=== PATIENT | male | born 1985 | race Caucasian/White ===

== ENCOUNTER 2017-05-14 14:31 | Emergency (ER) | payer SELFPAY ==
[~2017-05-14] VITALS: Ht 185.4 cm; Wt 84.1 kg
[~2017-05-14 14:31] MED LIST: NO HOME MEDICATIONS
[2017-05-14 14:38] VITALS: BP 129/75; TEMP 97
[2017-05-14] MEDS ORDERED: DOXYCYCLINE 10100 MG PO (17:01)
[2017-05-14] MEDS ORDERED: NORCO 325 MG-51 TAB PO (17:01)
[2017-05-14 17:12] VITALS: PULSE 86
== END 2017-05-14 17:13 | disposition home or self-care (01) ==
LOC: COL.ER 14:31
DX: S62.317A Displaced fracture of base of fifth metacarpal bone, left hand, initial encounter for closed fracture (principal); F17.210 Nicotine dependence, cigarettes, uncomplicated; W23.0XXA Caught, crushed, jammed, or pinched between moving objects, initial encounter